=== PATIENT | female | born 1990 | race Caucasian/White ===

== ENCOUNTER 2016-11-28 20:34 | Emergency (ER) | payer OTHER ==
--- NOTE | ~2016-11-28 | CR21 ---
[facility] A Service of [facility] RADIOLOGY TEXT RESULTS PATIENT: QUINTON DIAZ [place] [facility] [place] [birth year] [place]IT #: [id number] AGE: [address]: Devora Cobos APRN SEX: F ORDER DR: [id number] [address] [address] [id number] MR#: [id number] Acc #: [id number] NAME: QUINTON DIAZ : 1990 SEX: F STUDY DATE/TIME: 11/28/2016 20:10 UNIT: SED ROOM: STUDY DESCRIPTION: CR Ankle Min 3 Views Rt Attending Physician: Devora Cobos A.P.R.N. Ordering Physician: Devora Evangelista A.P.R.N. Primary Care Physician: No Primary Care Physician MEDICAL IMAGING REPORT This report is preliminary unless electronic signature is present. EXAM Right ankle, right, 3 views. HISTORY Right ankle pain starting earlier today after she landed on it wrong. FINDINGS Three views of the right ankle are reviewed. There are areas of dystrophic calcification consistent with prior trauma. There is also probably some soft tissue swelling and probably even a joint effusion seen on the lateral view. There is, however, no acute fracture or dislocation appreciated. IMPRESSION Evidence of prior trauma to the right ankle with some dystrophic calcification. 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 There may even be a tibiotalar joint effusion best appreciated on the lateral view. There is, however, no evidence for an acute fracture or dislocation. Dictated by... Felicia Godoy M.D. THIS IS AN ELECTRONICALLY VERIFIED REPORT Felicia Godoy M.D. at 11/29/2016 3:09 PM ELTON/walter TD: 11/29/2016 15:00 JOB #: [id number] [facility] A Service [facility] RADIOLOGY TEXT RESULTS PATIENT: QUINTON DIAZ LOCATION: [facility] #: [id number] : [birth year] UNIT #: [id number] AGE: [address]: Devora Cobos APRN SEX: F ORDER DR: MEDICAL IMAGING REPORT Page 1 of 1
[~2016-11-28 20:34] MED LIST: INDOMETHACIN25 MG PO; NO MEDICATIONS; PHENERGAN25 M1 PO
== END 2016-11-28 20:50 | disposition home or self-care (01) ==
LOC: SED 20:34
DX: S93.401A Sprain of unspecified ligament of right ankle, initial encounter (principal); F17.210 Nicotine dependence, cigarettes, uncomplicated; X58.XXXA Exposure to other specified factors, initial encounter; Y92.69 Other specified industrial and construction area as the place of occurrence of the external cause; Y99.0 Civilian activity done for income or pay
CPT/HCPCS: 29515; 73610; 99283

== ENCOUNTER 2017-01-10 13:59 | Emergency (ER) | payer OTHER ==
[2017-01-10 15:10] LABS: URINE SOURCE CLEAN CATCH
[2017-01-10 15:13] LABS: BASOPHIL% 0.5 % (0-2.5); EOSINOPHIL# 0.1 X10e3 (0-0.7); HEMATOCRIT 37.8 % (35.0-45.0); HEMOGLOBIN 12.6 gm/dL (12.0-16.0); LYMPHOCYTE# 2.1 X10e3 (1.0-3.5); LYMPHOCYTE% 32.4 % (17.0-45.0); MEAN CELL VOLUME 89.3 FL (83-96); MEAN CORPUSCULAR HEMOGLOBIN 29.7 PG (28-34); MEAN CORPUSCULAR HGB CONC 33.3 g/dL (30-36); MEAN PLATELET VOLUME 8.1 FL (6.5-11.5); MONOCYTE# 0.4 X10e3 (0-1.0); MONOCYTE% 6.6 % (3.0-12.0); NEUTROPHIL# 3.9 X10e3 (1.5-7.1); NEUTROPHIL% 59.5 % (40-75); PLATELET COUNT 303 X10e3 (140-420); RED BLOOD COUNT 4.23 X10e (3.90-5.30); RED CELL DISTRIBUTION WIDTH 13.2 % (11.0-15.5); WHITE BLOOD COUNT 6.5 X10e3 (4.0-10.5)
[2017-01-10 15:13] LABS: URINE APPEARANCE CLEAR; URINE BILIRUBIN NEG (NEG); URINE BLOOD NEG (NEG); URINE COLOR YELLOW; URINE GLUCOSE NEG (NORM); URINE KETONE NEG (NEG); URINE LEUKOCYTE ESTERASE NEG (NEG); URINE NITRATE NEG (NEG); URINE PH 6.5 (5-8); URINE PROTEIN NEG (NEG); URINE SPECIFIC GRAVITY 1.015 (1.003-1.035); URINE UROBILINOGEN 0.2 MG/DL (NORM)
[2017-01-10 15:15] LABS: MICRO INDICATED? NO
[2017-01-10 15:20] LABS: DIFF IND NO
[2017-01-10 15:49] LABS: ALBUMIN SERUM 3.9 g/dL (3.5-5.0); ALKALINE PHOSPHATASE 60 U/L (32-92); ALT (SGPT) 8 U/L (10-40); AST (SGOT) 14 U/L (10-42); BILIRUBIN, DIRECT 0.1 mg/dL (0.0-0.2); BLOOD UREA NITROGEN 9 mg/dL (9-23); BUN/CREATININE RATIO 12.85; CALCIUM SERUM 8.9 mg/dL (8.4-10.2); CARBON DIOXIDE 26 mmol/L (22-31); CHLORIDE 107 mmol/L (100-111); CREATININE SERUM 0.7 mg/dL (0.6-1.4); GLOM FILT RATE Estimated 121.3 mL/min (>60); GLUCOSE FASTING 86 mg/dL (70-110); LIPASE 15 U/L (22-51); POTASSIUM 3.8 mmol/L (3.5-5.1); PROTEIN TOTAL SERUM 6.9 g/dL (6.0-8.3); SODIUM 140 mmol/L (135-145)
[2017-01-10 15:50] LABS: BILIRUBIN,TOTAL <0.1 mg/dL (0.2-2.0)
== END 2017-01-10 16:58 | disposition home or self-care (01) ==
LOC: SED 13:59
PROVIDERS: Emergency Medicine
DX: K29.70 Gastritis, unspecified, without bleeding (principal); Z88.0 Allergy status to penicillin; F17.210 Nicotine dependence, cigarettes, uncomplicated
CPT/HCPCS: 36415; 80048; 80076; 81003; 83690; 84703; 85025; 94640; 96374; 99284